=== PATIENT | male | born 2005 | race African-American/Black ===

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

== ENCOUNTER 2024-08-19 10:38 | Emergency (ER) | payer SELFPAY ==
[2024-08-19] MEDS: Ibuprofen 600 MG Tab PO ONE (12:03)
[2024-08-19 12:09] VITALS: BP 125/74; PULSE 80
== END 2024-08-19 12:07 | disposition home or self-care (01) ==
LOC: MW.ED 10:38
DX: R05.9 Cough, unspecified (principal); R09.81 Nasal congestion; J02.9 Acute pharyngitis, unspecified; F17.210 Nicotine dependence, cigarettes, uncomplicated; Z75.8 Other problems related to medical facilities and other health care
CPT/HCPCS: 71046; 87428; 87651; 99283; A9270

== ENCOUNTER 2024-12-02 14:19 | Emergency (ER) | payer SELFPAY ==
[2024-12-02 15:25] VITALS: BP 141/74; PULSE 75
== END 2024-12-02 18:05 | disposition home or self-care (01) ==
LOC: MW.ED 14:19
DX: S29.011A Strain of muscle and tendon of front wall of thorax, initial encounter (principal); Z75.8 Other problems related to medical facilities and other health care; Z79.899 Other long term (current) drug therapy; X58.XXXA Exposure to other specified factors, initial encounter; Y93.89 Activity, other specified
CPT/HCPCS: 71046; 71046-26; 93005; 99285